=== PATIENT | male | born 1985 | race Caucasian/White ===

== ENCOUNTER 2020-08-30 08:08 | Emergency (ER) | payer SELFPAY ==
[2020-08-30] VITALS (11 sets, daily range): BP systolic 110–123; BP diastolic 59–72; PULSE 84–105; RESP 20–27; TEMP 37.2–38.6; O2SAT 94–100; BMI 25.8
--- NOTE | 2020-08-30 08:35 | ED_ITS ---
HPI - Fever General Chief Complaint: Dizziness Stated Complaint: Really dizzy, started at work day before yesterday Time Seen by Provider: 08/30/20 08:20 Source: patient Mode of arrival: Family Vehicle Limitations: no limitations History of Present Illness HPI Narrative: Patient is a 35-year-old male who presents with dizziness. He says it started a few days ago when he was at work. 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 He has noticed that every time he stands up the dizziness gets worse, but once standing for a while it does seem to level out. He is not passed out. He is noted to have a fever in the emergency department he is unsure when that started. He denies any body aches. He has no cough chest pain sore throat. He has had a few episodes of diarrhea but no abdominal pain. He states diarrhea started yesterday he says every time he drinks water his diarrhea is nonbloody. He denies any nausea or vomiting. He denies any dysuria. He has no known exposure of COVID. He denies any loss of taste or smell. He denies any rigors or sweats. complaint: fever Related Data Allergies Allergy/AdvReac Type Severity Reaction Status Date / Time No Known Drug Allergies Allergy Verified 08/30/20 08:24 Review of Systems Constitutional Constitutional: Reports as per HPI, Reports fatigue and Reports fever(s) Eyes Eyes: Denies change in vision, Denies eye discharge, Denies irritation and D enies loss of vision ENT Ears, Nose, Mouth, and Throat: Denies change in voice, Reports dizziness, Denies neck pain and Denies sore throat Cardiovascular Cardiovascular: Reports as per HPI, Denies chest pain, Denies syncope, Reports lightheadedness, Denies dyspnea and Denies dyspnea on exertion Respiratory Respiratory: Denies cough, Denies dyspnea, Denies dyspnea on exertion and Denies wheezing Gastrointestinal Gastrointestinal: Denies abdominal pain, Reports diarrhea and Denies nausea Musculoskeletal Musculoskeletal: Denies myalgias and Denies neck pain Integumentary/Breasts Skin/Breast: Denies pruritus, Denies erythema, Denies rash and Denies wounds Neurologic Neurologic: Denies confusion, Reports dizziness, Denies syncope and Denies loss of vision Psychiatric Psychiatric: Denies confusion Endocrine Endocrine: Reports fatigue Allergic/Immunologic Allergic/Immunologic: Denies wheezing Patient History Social History Smoking Status: Never smoker Smoking Status: Never smoker alcohol intake frequency: a few times a week Substance Use Type: does not use Exam Initial Vital Signs Initial Vital Signs: Vital Signs Temperature 101 F H 08/30/20 08:26 Pulse Rate 103 H 08/30/20 08:26 Respiratory Rate 20 08/30/20 08:26 Blood Pressure 123/72 08/30/20 08:26 Pulse Oximetry 100 08/30/20 08:26 GENERAL: Well-appearing, well-nourished and in no acute distress. HEENT: Head atraumatic,EOMI, pupils reactive, face symmetric, moist mucous membranes CARDIOVASCULAR: Regular rate and rhythm without murmurs, rubs or gallops. RESPIRATORY: Breath sounds equal bilaterally, no wheezes rales or rhonchi. ABDOMEN: Soft, nontender. Normoactive bowel sounds all 4 quadrants. No guarding or rebound. EXTREMITIES: Normal range of motion, no clubbing or edema. Neurovascularly intact NEUROLOGICAL: Alert and oriented x4.Normal gait and speech. Cranial nerves II through XII grossly intact. Cigarette Vendor strength equal bilaterally SKIN: Warm, dry, no laceration, no petechiae, no rashes or lesions. Course Orders Ordered: ED Orders 08/30/20 08:33 Urinalysis and Microscopic Stat 08/30/20 08:34 XR chest 1V Stat 08/30/20 08:40 COVID19 Stat 08/30/20 08:45 Blood Culture Stat C-Reactive Protein Quant Stat Complete Blood Count AUTO DIFF Stat Comprehensive Metabolic Panel Stat D Dimer Stat Ferritin Stat Lactate (Lactic Acid) Stat Lactate Dehydrogenase Stat Procalcitonin Stat 08/30/20 09:36 CT angio chest PE protocol Stat Discontinued Medications Acetaminophen (Acetaminophen 325 Mg Tablet) 975 mg PO NOW ONE Stop: 08/30/20 08:39 Last Admin: 08/30/20 08:45 Dose: 975 mg Documented by: MASSIEL Sodium Chloride (Normal Saline 0.9%) 1,000 mls @ 125 mls/hr IV CONT KAMAR Last Infusion: 08/30/20 08:45 Dose: 999 mls/hr Documented by: Admin: 08/30/20 08:45 Dose: 125 mls/hr Documented by: MMINOR Vital Signs Vital signs: Vital Signs - 8 hr 08/30/20 08:26 08/30/20 08:30 08/30/20 09:32 Temperature 101 F H 101.4 F H Pulse Rate 103 H 93 H Pulse Rate [Orthostatic Lying] Pulse Rate [Orthostatic Sitting] Pulse Rate [Orthostatic Standing] Respiratory Rate 20 24 Blood Pressure 123/72 Blood Pressure [Orthostatic Lying] Blood Pressure [Orthostatic Sitting] Blood Pressure [Orthostatic Standing] Pulse Oximetry 100 95 08/30/20 09:33 08/30/20 09:35 08/30/20 09:37 Temperature Pulse Rate 91 H 94 H 105 H Pulse Rate [Orthostatic Lying] Pulse Rate [Orthostatic Sitting] Pulse Rate [Orthostatic Standing] Respiratory Rate 24 27 H 23 Blood Pressure 115/59 L 111/63 110/67 Blood Pressure [Orthostatic Lying] Blood Pressure [Orthostatic Sitting] Blood Pressure [Orthostatic Standing] Pulse Oximetry 95 95 94 08/30/20 09:45 08/30/20 09:52 08/30/20 10:00 Temperature Pulse Rate 86 84 Pulse Rate [Orthostatic Lying] 90 Pulse Rate [Orthostatic Sitting] 92 H Pulse Rate [Orthostatic Standing] 105 H Respiratory Rate 21 23 Blood Pressure 110/63 110/63 Blood Pressure [Orthostatic Lying] 115/59 L Blood Pressure [Orthostatic Sitting] 111/63 Blood Pressure [Orthostatic Standing] 110/67 Pulse Oximetry 95 96 08/30/20 10:59 08/30/20 11:01 Temperature 99.0 F 99 F Pulse Rate 84 Pulse Rate [Orthostatic Lying] Pulse Rate [Orthostatic Sitting] Pulse Rate [Orthostatic Standing] Respiratory Rate 23 Blood Pressure 113/63 Blood Pressure [Orthostatic Lying] Blood Pressure [Orthostatic Sitting] Blood Pressure [Orthostatic Standing] Pulse Oximetry 96 MDM - Fever Lab Data Attestation: I reviewed the patient's lab results. Result diagrams: 08/30/20 08:45 08/30/20 08:45 Labs: Lab Results 08/30/20 08/30/20 08/30/20 Range/Units 08:40 08:45 08:45 WBC (4.5-11.0) X10^3/uL RBC (4.5-5.9) X10^6/uL Hgb (13.5-17.5) g/dL Hct (41-53) % MCV (80-100) fL MCH (26-34) PG MCHC (30-36) % RDW (11.6-14.8) % Plt Count (150-400) X10^3/uL Neut % (Auto) (50-75) % Lymph % (Auto) (25-40) % [place] % (Auto) (3-14) % Eos % (Auto) (2-4) % Baso % (Auto) (0-2) % Neut # (Auto) (3671-3564) /uL Lymph # (Auto) (4468-8632) /uL [place] # (Auto) (0-900) /uL Eos # (Auto) (0-450) /uL Baso # (Auto) (0-100) /uL D-Dimer 732 H (<230) ng/mL Sodium (137-145) mmol/L Potassium (3.4-5.1) mmol/L Chloride (98-107) mmol/L Carbon Dioxide (22-32) mmol/L BUN (9-20) mg/dL Creatinine (0.66-1.25) mg/dL Estimated GFR (>60) mL/min BUN/Creatinine Ratio (6-22) Glucose (70-100) mg/dL Lactate (0.7-2.1) mmol/L Calcium (8.4-10.2) mg/dL Ferritin (18-464) ng/mL Total Bilirubin (0.2-1.3) mg/dL AST (17-59) IU/L ALT (<50) IU/L Alkaline Phosphatase (38-126) U/L Lactate Dehydrogenase (313-618) U/L C-Reactive Protein (<1.0) mg/dL Total Protein (6.3-8.2) g/dL Albumin (3.5-5.0) g/dL Globulin (1.7-4.1) g/dL Albumin/Globulin Ratio (1.0-2.8) Procalcitonin 0.34 (<0.5) ng/mL Urine Color Urine Appearance Urine pH (4.5-8.0) Ur Specific [place] (1.000-1.035) Urine Protein (Negative) Urine Glucose (UA) (Negative) g/dL Urine Ketones (NEGATIVE) Urine Occult Blood (Negative) Urine Nitrate (Negative) Urine Bilirubin (NEGATIVE) Urine Urobilinogen (0.2) E.U./dL Ur Leukocyte Esterase (NEGATIVE) Urine RBC (0-5/HPF) Urine WBC (0-5/HPF) Urine Bacteria (None) Urine Mucus (Negative) Ur Culture Indicated? COVID-19 PCR Negative (Negative) 08/30/20 08/30/20 08/30/20 Range/Units 08:45 08:45 08:45 WBC 10.9 (4.5-11.0) X10^3/uL RBC 4.32 L (4.5-5.9) X10^6/uL Hgb 14.2 (13.5-17.5) g/dL Hct 40.5 L (41-53) % MCV 93.7 (80-100) fL MCH 33.0 (26-34) PG MCHC 35.2 (30-36) % RDW 12.4 (11.6-14.8) % Plt Count 152 (150-400) X10^3/uL Neut % (Auto) 84.9 H (50-75) % Lymph % (Auto) 6.0 L (25-40) % [place] % (Auto) 8.9 (3-14) % Eos % (Auto) 0.0 L (2-4) % Baso % (Auto) 0.2 (0-2) % Neut # (Auto) 9200 H (9921-6140) /uL Lymph # (Auto) 600 L (0672-9927) /uL [place] # (Auto) 1000 H (0-900) /uL Eos # (Auto) 0 (0-450) /uL Baso # (Auto) 0 (0-100) /uL D-Dimer (<230) ng/mL Sodium 129 L (137-145) mmol/L Potassium 3.5 (3.4-5.1) mmol/L Chloride 97 L (98-107) mmol/L Carbon Dioxide 23 (22-32) mmol/L BUN 11 (9-20) mg/dL Creatinine 1.02 (0.66-1.25) mg/dL Estimated GFR > 60.0 (>60) mL/min BUN/Creatinine Ratio 10.8 (6-22) Glucose 111 H (70-100) mg/dL Lactate 0.7 (0.7-2.1) mmol/L Calcium 8.6 (8.4-10.2) mg/dL Ferritin 184 (18-464) ng/mL Total Bilirubin 0.7 (0.2-1.3) mg/dL AST 24 (17-59) IU/L ALT 15 (<50) IU/L Alkaline Phosphatase 56 (38-126) U/L Lactate Dehydrogenase 325 (313-618) U/L C-Reactive Protein 14.5 H (<1.0) mg/dL Total Protein 7.2 (6.3-8.2) g/dL Albumin 4.0 (3.5-5.0) g/dL Globulin 3.2 (1.7-4.1) g/dL Albumin/Globulin Ratio 1.3 (1.0-2.8) Procalcitonin (<0.5) ng/mL Urine Color Urine Appearance Urine pH (4.5-8.0) Ur Specific [place] (1.000-1.035) Urine Protein (Negative) Urine Glucose (UA) (Negative) g/dL Urine Ketones (NEGATIVE) Urine Occult Blood (Negative) Urine Nitrate (Negative) Urine Bilirubin (NEGATIVE) Urine Urobilinogen (0.2) E.U./dL Ur Leukocyte Esterase (NEGATIVE) Urine RBC (0-5/HPF) Urine WBC (0-5/HPF) Urine Bacteria (None) Urine Mucus (Negative) Ur Culture Indicated? COVID-19 PCR (Negative) 08/30/20 Range/Units 10:05 WBC (4.5-11.0) X10^3/uL RBC (4.5-5.9) X10^6/uL Hgb (13.5-17.5) g/dL Hct (41-53) % MCV (80-100) fL MCH (26-34) PG MCHC (30-36) % RDW (11.6-14.8) % Plt Count (150-400) X10^3/uL Neut % (Auto) (50-75) % Lymph % (Auto) (25-40) % [place] % (Auto) (3-14) % Eos % (Auto) (2-4) % Baso % (Auto) (0-2) % Neut # (Auto) (5646-7931) /uL Lymph # (Auto) (8317-4276) /uL [place] # (Auto) (0-900) /uL Eos # (Auto) (0-450) /uL Baso # (Auto) (0-100) /uL D-Dimer (<230) ng/mL Sodium (137-145) mmol/L Potassium (3.4-5.1) mmol/L Chloride (98-107) mmol/L Carbon Dioxide (22-32) mmol/L BUN (9-20) mg/dL Creatinine (0.66-1.25) mg/dL Estimated GFR (>60) mL/min BUN/Creatinine Ratio (6-22) Glucose (70-100) mg/dL Lactate (0.7-2.1) mmol/L Calcium (8.4-10.2) mg/dL Ferritin (18-464) ng/mL Total Bilirubin (0.2-1.3) mg/dL AST (17-59) IU/L ALT (<50) IU/L Alkaline Phosphatase (38-126) U/L Lactate Dehydrogenase (313-618) U/L C-Reactive Protein (<1.0) mg/dL Total Protein (6.3-8.2) g/dL Albumin (3.5-5.0) g/dL Globulin (1.7-4.1) g/dL Albumin/Globulin Ratio (1.0-2.8) Procalcitonin (<0.5) ng/mL Urine Color Yellow Urine Appearance Clear Urine pH 5.5 (4.5-8.0) Ur Specific [place] 1.020 (1.000-1.035) Urine Protein 1+ H (Negative) Urine Glucose (UA) Negative (Negative) g/dL Urine Ketones 1+ H (NEGATIVE) Urine Occult Blood Negative (Negative) Urine Nitrate Negative (Negative) Urine Bilirubin Negative (NEGATIVE) Urine Urobilinogen 0.2 (0.2) E.U./dL Ur Leukocyte Esterase Negative (NEGATIVE) Urine RBC None seen (0-5/HPF) Urine WBC 0-1/hpf (0-5/HPF) Urine Bacteria Many (>30) H (None) Urine Mucus 2+ H (Negative) Ur Culture Indicated? Cult not indicated COVID-19 PCR (Negative) Imaging Data Chest x-ray: Radiologist's Impression: PROCEDURE: XR CHEST 1V INDICATIONS: flu-like symptoms TECHNIQUE: One view of the chest was acquired. COMPARISON: None. FINDINGS: Surgical changes and devices: None. Lungs and pleura: Lungs are clear. No pleural effusions or pneumothorax. Mediastinum: Mediastinal contours appear normal. Heart size is normal. Bones and chest wall: No suspicious bony lesions. Overlying soft tissues appear unremarkable. IMPRESSION: No evidence acute pulmonary process. Dictated by: Victor Manuel Adhikari M.D. on 08/30/2020 at 9:26 CT scan - chest: Radiologist's Impression: PROCEDURE: CT ANGIO CHEST PE PROTOCOL INDICATIONS: elevated dimer TECHNIQUE: After the administration of intravenous contrast, 2 mm thick sections acquired from the pulmonary apices to the posterior costophrenic angles. 3-dimensional maximum intensity projection (MIP) coronal and sagittal reformats were then acquired through the thorax. For radiation dose reduction, the following was used: automated exposure control, adjustment of mA and/or kV according to patient size. COMPARISON: None. FINDINGS: Image quality: Excellent. Pulmonary arteries: Pulmonary arteries are normal in size, and demonstrate no intraluminal filling defects to suggest central pulmonary embolism. Lungs and pleura: Minimal right basilar atelectasis. Lungs otherwise clear. No pleural effusions or pneumothorax. Central and peripheral airways are patent. Mediastinum: Heart size is normal, without pericardial effusion. No mediastinal or hilar adenopathy. Thoracic aorta is normal in caliber and enhancement. Esophagus is normal in caliber, without hiatal hernia. Incidental note is made of normal variant origin of the left vertebral artery off the aortic arch. Bones and chest wall: No suspicious bony lesions. Ribs and thoracic spine appear intact throughout. Thyroid gland is unremarkable. No axillary or supraclavicular adenopathy. Abdomen: Visualized upper abdominal solid organs appear normal in the early arterial phase of enhancement. IMPRESSION: 1. No evidence acute pulmonary emboli. 2. Minimal right basilar atelectasis. Dictated by: Victor Manuel Adhikari M.D. on 08/30/2020 at 10:01 Approved by: Victor Manuel Adhikari M.D. on 08/30/2020 at 10:03 ECG Data Attestation: I personally reviewed and interpreted this ECG as follows: Interpretation: Normal sinus rhythm rate 100 p.r. interval 144 keep can see removed for O2 QRS [address] changes no T-wave inversions and Q-waves MDM Narrative Medical decision making narrative: Patient is noted to be febrile he has absolutely no respiratory symptoms abdomen is soft. COVID-19 is negative are however he does have some elevated inflammatory markers such as D-dimer and procalcitonin and CRP. 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 He does wear gloves in keep his hands clean as best he can. Because D-dimer was elevated and he was tachycardic CT was ordered which is negative. Is the his in the diarrhea while in the ED. his heart rate and temperature have improved. Abdomen is soft no imaging of the abdomen indicated at this time. At this time I recommend conservative treatment. Discharge Plan Departure Patient Disposition: Home Clinical Impression: Gastroenteritis Instructions: DI for Viral Gastroenteritis -- Adult Activity Restrictions/Additional Instructions: *You have been diagnosed with gastroenteritis *What to do: Increased fluid as tolerated with Gatorade or Gatorade like substance. May increase diet and food as tolerated as well *Continue to take medications as directed *Follow up with your primary care provider in 2-3 days *Return to ER if you should have bloody stools, dizziness lightheadedness, persistent or worsening diarrhea or vomiting or any new, worsening or concerning symptoms Referrals: [facility] [Outside] Stand Alone Forms: Work Release Note
[2020-08-30] MEDS: SODIUM CHLORIDE 0.9% 1,000 ML 125 ML IV (08:45)
[2020-08-30] MEDS: ACETAMINOPHEN 325 MG TABLET 975 MG PO (08:45)
[2020-08-30 08:56] LABS: Add Manual Diff / Slide Review NO; Basophils Absolute Auto 0 /uL (0-100); Basophils Percent Auto 0.2 % (0-2); Eosinophils Absolute Auto 0 /uL (0-450); Hematocrit 40.5 % (41-53); Hemoglobin 14.2 g/dL (13.5-17.5); Lymphocytes Absolute Auto 600 /uL (1100-4500); Mean Corpuscular HGB Conc 35.2 % (30-36); Mean Corpuscular Volume 93.7 fL (80-100); Monocytes Absolute Auto 1000 /uL (0-900); Monocytes Percent Auto 8.9 % (3-14); Neutrophils Absolute Auto 9200 /uL (1500-7000); Neutrophils Percent Auto 84.9 % (50-75); Platelet Count 152 X10^3/uL (150-400); Red Blood Cell Count 4.32 X10^6/uL (4.5-5.9); Red Cell Distribution Width 12.4 % (11.6-14.8); White Blood Cell Count 10.9 X10^3/uL (4.5-11.0)
[2020-08-30 09:01] LABS: COVID19 -Nasal RAPID Negative (Negative)
[2020-08-30 09:07] LABS: D Dimer 732 ng/mL (<230); Lactate (Lactic Acid) 0.7 mmol/L (0.7-2.1)
[2020-08-30 09:10] LABS: Alanine Aminotransferase 15 IU/L (<50); Albumin Globulin Ratio 1.3 (1.0-2.8); Alkaline Phosphatase 56 U/L (38-126); Aspartate Aminotransferase 24 IU/L (17-59); BUN Creatinine Ratio 10.8 (6-22); Bilirubin Total 0.7 mg/dL (0.2-1.3); Blood Urea Nitrogen 11 mg/dL (9-20); Calcium 8.6 mg/dL (8.4-10.2); Carbon Dioxide 23 mmol/L (22-32); Chloride 97 mmol/L (98-107); Estimated Glomerular Filt Rate > 60.0 mL/min (>60); Globulin 3.2 g/dL (1.7-4.1); Glucose 111 mg/dL (70-100); HEMOLYSIS < 15 (0-50); Lactate Dehydrogenase 325 U/L (313-618); Potassium 3.5 mmol/L (3.4-5.1); Sodium 129 mmol/L (137-145); Total Protein 7.2 g/dL (6.3-8.2)
[2020-08-30 09:21] LABS: Procalcitonin 0.34 ng/mL (<0.5)
[2020-08-30 09:23] LABS: C-Reactive Protein Quant 14.5 mg/dL (<1.0)
[2020-08-30 09:42] LABS: Ferritin 184 ng/mL (18-464)
--- NOTE | 2020-08-30 09:43 | DI.CT.S_ITS ---
PROCEDURE: CT ANGIO CHEST PE PROTOCOL INDICATIONS: elevated dimer TECHNIQUE: After the administration of intravenous contrast, 2 mm thick sections acquired from the pulmonary apices to the posterior costophrenic angles. 3-dimensional maximum intensity projection (MIP) coronal and sagittal reformats were then acquired through the thorax. For radiation dose reduction, the following was used: automated exposure control, adjustment of mA and/or kV according to patient size. COMPARISON: None. FINDINGS: Image quality: Excellent. Pulmonary arteries: Pulmonary arteries are normal in size, and demonstrate no intraluminal filling defects to suggest central pulmonary embolism. Lungs and pleura: Minimal right basilar atelectasis. Lungs otherwise clear. No pleural effusions or pneumothorax. Central and peripheral airways are patent. Mediastinum: Heart size is normal, without pericardial effusion. No mediastinal or hilar adenopathy. Thoracic aorta is normal in caliber and enhancement. Esophagus is normal in caliber, without hiatal hernia. Incidental note is made of normal variant origin of the left vertebral artery off the aortic arch. Bones and chest wall: No suspicious bony lesions. Ribs and thoracic spine appear intact throughout. Thyroid gland is unremarkable. No axillary or supraclavicular adenopathy. Abdomen: Visualized upper abdominal solid organs appear normal in the early arterial phase of enhancement. IMPRESSION: 1. No evidence acute pulmonary emboli. 2. Minimal right basilar atelectasis. Dictated by: Victor Manuel Adhikari M.D. on 08/30/2020 at 10:01 Approved by: Victor Manuel Adhikari M.D. on 08/30/2020 at 10:03
[2020-08-30 10:08] LABS: RBC Urine None Seen (0-5/HPF)
[2020-08-30 10:09] LABS: Appearance Urine UA CLEAR; Bilirubin Urine UA NEGATIVE (NEGATIVE); Color Urine UA YELLOW; Glucose Urine UA NEGATIVE (Negative); Ketones Urine UA 1+ (NEGATIVE); Leukocyte Esterase Urine UA NEGATIVE (NEGATIVE); Nitrite Urine UA NEGATIVE (Negative); Occult Blood Urine UA NEGATIVE (Negative); Protein Urine UA 1+ (Negative); Urobilinogen Urine UA 0.2 E.U./dL (0.2); pH Urine UA 5.5 (4.5-8.0)
[2020-08-30 10:32] LABS: Bacteria Urine Many (>30); WBC Urine 0-1/HPF (0-5/HPF)
[2020-08-30 10:33] LABS: Culture Indicated Urine Cult Not Indicated; Mucus Urine 2+ (Negative)
== END 2020-08-30 11:03 | disposition home or self-care (01) ==
PROVIDERS: Emergency Provider Emergency Medicine
DX: K52.9 Noninfective gastroenteritis and colitis, unspecified (principal); R50.9 Fever, unspecified; R79.89 Other specified abnormal findings of blood chemistry; Z20.828 Contact with and (suspected) exposure to other viral communicable diseases
CPT/HCPCS: 36415; 71045; 71275; 80053; 81001; 82728; 83605; 83615; 84145; 85025; 85379; 86140; 87040; 87635; 93005; 93010; 96360; 99284; Q9967

== ENCOUNTER → 2021-06-17 13:04 | Outpatient (ROUT) | payer OTHER, SELFPAY ==
[2021-06-17 14:29] LABS: COVID19 -Nasal RAPID Negative (Negative)
== END ==
PROVIDERS: Visit Provider Family Medicine
DX: Z20.822 Contact with and (suspected) exposure to COVID-19 (principal)
CPT/HCPCS: 87635